=== PATIENT | female | born 1975 | race Asian ===

== ENCOUNTER 2021-03-23 08:37 | Outpatient (CLI) | payer BC | END 2021-03-23 08:38 | disposition home or self-care (01) | LOC: CSHMAMMO 08:37 | PROVIDERS: ATTEND Family Medicine | DX: Z12.31 Encounter for screening mammogram for malignant neoplasm of breast (principal) | CPT/HCPCS: 77063; 77067 ==

== ENCOUNTER 2023-02-21 08:18 | Outpatient (CLI) | payer BC | END 2023-02-21 08:19 | disposition home or self-care (01) | LOC: CSHMAMMO 08:18 | PROVIDERS: ATTEND Family Medicine | DX: Z12.31 Encounter for screening mammogram for malignant neoplasm of breast (principal) | CPT/HCPCS: 77063; 77067 ==

== ENCOUNTER 2025-03-26 10:20 | Outpatient (CLI) | payer BC | END 2025-03-26 10:21 | disposition home or self-care (01) | LOC: CSHMAMMO 10:20 | PROVIDERS: ATTEND Family Medicine | DX: Z12.31 Encounter for screening mammogram for malignant neoplasm of breast (principal) | CPT/HCPCS: 77063; 77067 ==